=== PATIENT | female | born 2000 | race Caucasian/White ===

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

== ENCOUNTER 2018-02-10 08:00 | Emergency (ER) | payer MEDICAID ==
[2018-02-10 08:09] VITALS: BP 134/93
--- NOTE | 2018-02-10 08:45 | ER Document Report ---
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 Patient states that on occasion she will get some tingling in her fingers. Patient does work as a take out waiter/waitress and uses her arms constantly, but does not recall a specific injury that precipitated her pain. She denies any drug allergies. Denies any trauma. Denies any IV drug use or smoking. No other concerns or complaints. Denies any headache, fever, head injury, neck pain/stiffness, URI, sore throat, chest pain, palpitations, syncope, cough, shortness of breath, wheeze, dyspnea, abdominal pain, nausea/vomiting/diarrhea, urinary retention, dysuria, hematuria , loss of control of bowel or bladder, muscle paralysis/weakness, or rash. - ROS Systems Reviewed and Negative: Yes All other systems reviewed and negative - EENT EENT: DENIES: Sore Throat - CARDIOVASCULAR Cardiovascular: DENIES: Chest pain - REPRODUCTIVE Reproductive: DENIES: : - MUSCULOSKELETAL Musculoskeletal: REPORTS: Extremity pain - right shoulder Past Medical History - Social History Smoking Status: Never Smoker Chew tobacco use (# tins/day): No Frequency of alcohol use: None Drug Abuse: None Family History: Reviewed & Not Pertinent Patient has suicidal ideation: No Patient has homicidal ideation: No Endocrine Medical History: Reports: Hx Hypothyroidism Renal/ Medical History: Denies: Hx Peritoneal Dialysis Psychiatric Medical History: Reports: Hx Anxiety, Hx Depression, Hx Post Traumatic Stress Disorder - Mother states: "daddy issues". Past Surgical History: Reports: Hx Orthopedic Surgery - left wrist - Immunizations Immunizations up to date: Yes Vertical Provider Document - CONSTITUTIONAL Agree With Documented VS: Yes Notes: PHYSICAL EXAMINATION: GENERAL: Well-appearing, well-nourished and in no acute distress. NECK: Normal range of motion, supple without lymphadenopathy. Non-tender. Spurling negative. No rigidity/meningismus. LUNGS: Breath sounds clear to auscultation bilaterally and equal. No wheezes rales or rhonchi. HEART: Regular rate and rhythm without murmurs, rubs, gallops. Musculoskeletal: Rt shoulder: FROM to passive. LROM to active due to pain. Strength 4+/5 due to pain. mild + impingement test. Neg speed test. No crepitus. No erythema or warmth. No deformity or ecchymosis. RC intact 4+/5 strength to lateral rotation and empty can test. Extremities: No cyanosis, clubbing, or edema b/l. Peripheral pulses 2+. Capillary refill less than 3 seconds. NEUROLOGICAL: Normal speech, normal gait. Normal sensory, motor exams PSYCH: Normal mood, normal affect. SKIN: Warm, Dry, normal turgor, no rashes or lesions noted. - INFECTION CONTROL TRAVEL OUTSIDE OF THE [place] IN LAST 30 DAYS: No Course - Re-evaluation Re-evalutation: 02/10/18 08:43 Patient is an afebrile, well-hydrated, 18-year-old female who presents to the ED with Rt shoulder pain which I suspect to be inflammatory at this time. Vitals are acceptable without any significant tachycardia, tachypnea, or hypoxia. PE is otherwise unremarkable for any neurovascular compromise, obvious tendon/ligament rupture, obvious fracture/dislocation, septic joint. Patient is nontoxic-appearing. No labs or imaging warranted at this time based on H&P. Rx for voltaren gel. Conservative measures otherwise for symptoms. Recheck with your PCM in 3-5 days. Schedule an appt with ortho. Return to the ED with any worsening/concerning symptoms otherwise as reviewed in discharge. Patient is in agreement. - Vital Signs Vital signs: Temp Pulse Resp BP Pulse Ox 98.3 F 70 18 134/93 H 99 02/10/18 08:03 02/10/18 08:03 02/10/18 08:03 02/10/18 08:03 02/10/18 08:03 Discharge - Discharge Clinical Impression: Right shoulder pain Qualifiers: Chronicity: acute Qualified Code(s): M25.511 - Pain in right shoulder Condition: Stable Disposition: HOME, SELF-CARE Additional Instructions: Rest, Ice, Compression Tylenol/ibuprofen as needed Light stretches daily Strength exercises as able Moist heat and massage may help F/u with your PCP in 3-5 days for a recheck Schedule an appointment with orthopedics for further evaluation and management Return to the ED with any worsening symptoms and/or development of fever, headache, chest pain, palpitations, syncope, shortness of breath, trouble breathing, abdominal pain, n/v/d, muscle weakness/paralysis, numbness/tingling, swelling, redness, or other worsening symptoms that are concerning to you. Prescriptions: Diclofenac Sodium [Voltaren] 4 gm TP QID PRN #100 gel..gm. PRN Reason: Forms: Elevated Blood Pressure Referrals: DELPHINE WORTHINGTON MD [Primary Care Provider] - Follow up as needed [facility] [Provider Group] - Follow up in 3-5 days
== END 2018-02-10 08:49 | disposition home or self-care (01) ==
LOC: ER 08:00
DX: M25.511 Pain in right shoulder (principal); E03.9 Hypothyroidism, unspecified
CPT/HCPCS: 99283

== ENCOUNTER 2018-08-04 14:44 | Emergency (ER) | payer SELFPAY ==
--- NOTE | 2018-08-04 15:51 | ER Document Report ---
ED Medical Screen (RME) - General Chief Complaint: Abdominal Pain Stated Complaint: ABDOMINAL PAIN Time Seen by Provider: 08/04/18 15:43 Primary Care Provider: DELPHINE WORTHINGTON MD [Primary Care Provider] - Follow up as needed Mode of Arrival: Ambulatory Information source: Patient Notes: 18-year-old female presents to ED for complaint of pain to the right abdomen upp er and lower and pelvic area. She states she is also had nausea but no vomiting for about 3 days. She denies any fevers. She states she has had vaginal discharge of a brownish foul-smelling. She states she had a menstrual period about 3 weeks ago she is on the Nexplanon and and not had a period before that for about a year. Patient is alert oriented respirations regular and unlabored bowel sounds are present and active. Orders were started for blood work urine patient did self swab for GC chlamydia and wet mount. And a transvaginal ultrasound has been ordered. I have greeted and performed a rapid initial assessment of this patient. A comprehensive ED assessment and evaluation of the patient, analysis of test results and completion of medical decision making process will be conducted by an additional ED providers. TRAVEL OUTSIDE OF THE [place] IN LAST 30 DAYS: No - Related Data Allergies/Adverse Reactions: No Known Allergies Allergy (Verified 08/04/18 14:48) Past Medical History - Social History Chew tobacco use (# tins/day): No Frequency of alcohol use: None Drug Abuse: None Endocrine Medical History: Reports: Hx Hypothyroidism Renal/ Medical History: Denies: Hx Peritoneal Dialysis Psychiatric Medical History: Reports: Hx Anxiety, Hx Depression, Hx Post Traumatic Stress Disorder - Mother states: "daddy issues". Past Surgical History: Reports: Hx Orthopedic Surgery - left wrist - Immunizations Immunizations up to date: Yes Physical Exam - Vital signs Vitals: Temp Pulse Resp BP Pulse Ox 98.1 F 56 L 16 142/81 H 97 08/04/18 14:50 08/04/18 14:50 08/04/18 14:50 08/04/18 14:50 08/04/18 14:50 Course - Vital Signs Vital signs: Temp Pulse Resp BP Pulse Ox 98.1 F 56 L 16 142/81 H 97 08/04/18 14:50 08/04/18 14:50 08/04/18 14:50 08/04/18 14:50 08/04/18 14:50 Doctor's Discharge - Discharge Referrals: DELPHINE WORTHINGTON MD [Primary Care Provider] - Follow up as needed
[2018-08-04 16:22] LABS: BACTERIA (WET MOUNT) 3+ BACTERIA SEEN; EPITHELIALS (WET MOUNT) 3+ EPITHELIALS SEEN; RBCS (WET MOUNT) FEW RBCS SEEN; T.VAGINALIS (WET MOUNT) NO TRICHOMONAS SEEN; WBCS (WET MOUNT) FEW WBCS SEEN; YEAST (WET MOUNT) NO YEAST SEEN
[2018-08-04 16:33] LABS: ALANINE AMINOTRANSFERASE 32 U/L (9-52); ALBUMIN 4.6 g/dL (3.5-5.0); ALKALINE PHOSPHATASE 81 U/L (38-126); ANION GAP 9 (5-19); ASPARTATE AMINO TRANSFERASE 21 U/L (14-36); BILIRUBIN,DIRECT 0.1 mg/dL (0.0-0.4); BILIRUBIN,TOTAL 0.7 mg/dL (0.2-1.3); BLOOD UREA NITROGEN 8 mg/dL (7-20); CALCIUM 9.5 mg/dL (8.4-10.2); CARBON DIOXIDE 26 mmol/L (22-30); CHLORIDE 109 mmol/L (98-107); GLUCOSE 89 mg/dL (75-110); POTASSIUM 4.1 mmol/L (3.6-5.0); SODIUM 143.5 mmol/L (137-145); TOTAL PROTEIN 7.5 g/dL (6.3-8.2)
--- NOTE | 2018-08-04 16:59 | ER Document Report ---
ED General - General Chief Complaint: Abdominal Pain Stated Complaint: ABDOMINAL PAIN Time Seen by Provider: 08/04/18 15:43 Primary Care Provider: [facility] [Provider Group] - Follow up as needed DELPHINE WORTHINGTON MD [NO LOCAL MD] - Follow up as needed Mode of Arrival: Ambulatory TRAVEL OUTSIDE OF THE [place] IN LAST 30 DAYS: No - HPI Notes: Patient is a 18-year-old female with no significant past medical history who presents to the emergency department complaining of right lower quadrant abdominal pain that began about 3-4 days ago. Patient states that the pain was initially somewhat intermittent, but has been relatively constant since then. Patient states that the pain is throbbing and sometimes sharp. Pain does not radiate. She is still able to eat and drink, but does have occasional nausea. She is urinating normally and having normal bowel movements. Patient has not had any vaginal bleeding or odor, states she has noticed a slight brownish discharge. She is currently on the Nexplanon and has been over the last 1.25 years. Denies drug allergies. No surgical history to her abdomen. Denies any headache, fever, neck pain, URI, sore throat, chest pain, palpitations, syncope, cough, shortness of breath, wheeze, dyspnea, vomiting/diarrhea, urinary retention, dysuria, hematuria, back pain, or rash. - Related Data Allergies/Adverse Reactions: No Known Allergies Allergy (Verified 08/04/18 14:48) Past Medical History - General Information source: Patient - Social History Smoking Status: Never Smoker Chew tobacco use (# tins/day): No Frequency of alcohol use: None Drug Abuse: None Family History: Reviewed & Not Pertinent Patient has suicidal ideation: No Patient has homicidal ideation: No Endocrine Medical History: Reports: Hx Hypothyroidism Renal/ Medical History: Denies: Hx Peritoneal Dialysis Psychiatric Medical History: Reports: Hx Anxiety, Hx Depression, Hx Post Traumatic Stress Disorder - Mother states: "daddy issues". Past Surgical History: Reports: Hx Orthopedic Surgery - left wrist - Immunizations Immunizations up to date: Yes Review of Systems - Review of Systems -: Yes All other systems reviewed and negative Physical Exam - Vital signs Vitals: Temp Pulse Resp BP Pulse Ox 98.1 F 56 L 16 142/81 H 97 08/04/18 14:50 08/04/18 14:50 08/04/18 14:50 08/04/18 14:50 08/04/18 14:50 - Notes Notes: PHYSICAL EXAMINATION: accompanied by female rn, gabrielle GENERAL: Well-appearing, well-nourished and in no acute distress. A&Ox4. Answers questions appropriately. LUNGS: Breath sounds clear to auscultation bilaterally and equal. No wheezes rales or rhonchi. HEART: Regular rate and rhythm without murmurs, rubs, gallops. ABDOMEN: Soft, nondistended abdomen. No guarding, no rebound. Normal bowel sounds present. No CVA tenderness bilaterally. + tenderness at McBurney point. No lower pelvic tenderness. Female : No inguinal adenopathy. External genitalia without erythema, lesions, or masses. Vaginal mucosa pink with scant white discharge. Cervix parous, pink, and without discharge. Uterus is smooth. No adnexal tenderness. No significant CMT. Musculoskeletal: FROM to passive/active. Strength 5+/5. Extremities: No cyanosis, clubbing, or edema b/l. Peripheral pulses 2+. Capillary refill less than 3 seconds. NEUROLOGICAL: Normal speech, normal gait. PSYCH: Normal mood, normal affect. SKIN: Warm, Dry, normal turgor, no rashes or lesions noted. Course - Re-evaluation Re-evalutation: Patient is an afebrile, well-hydrated, 18-year-old female who presents to the ED with RLQ pain, probable rt PID. Vitals are acceptable without any significant tachycardia, tachypnea, or hypoxia. PE is otherwise unremarkable. CBC, CMP, Urinalysis and hCG are unremarkable for any acute pathology. See wet mount results. Chlam/gonorrhea tests are negative. Patient is nontoxic-appearing is tolerating p.o. without any difficulties. See TVUS and CT abd/pelv. No other labs or imaging warranted at this time based on H&P. Low suspicion/risk for acute appendicitis, bowel obstruction, acute cholecystitis, acute cholangitis, perforated diverticulitis, incarcerated hernia, pancreatitis, perforated ulcer, peritonitis, sepsis, ectopic , tubo-ovarian abscess, ovarian torsion, or other systemic emergent condition at this time. Patient is aware that her condition can change from initial presentation and she needs to monitor symptoms closely and seek medical attention if any acute changes. I will send her home with prescription for Flagyl and Doxy. Conservative measures otherwise for symptoms. Recheck with your PCM/OBGYN in 3-5 days. Return to the ED with any worsening/concerning symptoms otherwise as reviewed in discharge. Patient is in agreement. Reviewed with Dr. Kilgore who is in agreement with dispo/plan. - Vital Signs Vital signs: Temp Pulse Resp BP Pulse Ox 98.1 F 56 L 16 142/81 H 97 08/04/18 14:50 08/04/18 14:50 08/04/18 14:50 08/04/18 14:50 08/04/18 14:50 - Laboratory Result Diagrams: 08/04/18 16:54 08/04/18 15:55 Laboratory results interpreted by me: 08/04/18 08/04/18 15:55 16:54 Lymphocytes % 45.1 H Chloride 109 H Procedures - Pelvic Exam Pelvic exam Time completed: 18:30 Bimanual exam performed: Yes - negative Witnessed by: ELENA Parrishtruck unloader - Discharge Clinical Impression: PID (acute pelvic inflammatory disease), BV (bacterial vaginosis) Condition: Stable Disposition: HOME, SELF-CARE Instructions: Doxycycline ([facility]), Metronidazole ([facility]), Pelvic Inflammatory Disease ([facility]), Vaginosis, Bacterial ([facility]) Additional Instructions: Maintain fluid intake Proper hygienic technique Keep the skin clean Safe sexual practices with condoms everytime Tylenol/ibuprofen as needed F/u with your PCM/OBGYN in 3-5 days for a recheck Return to the ED with any development of ABDUL/fever, trouble with vision, eye redness, worsening pain, urethral discharge, urinary retention, blood in the urine, flank pain, abdominal pain, n/v, Chest Pain, shortness of breath, joint pains, trouble breathing, or any other worsening/concerning symptoms as needed otherwise. Prescriptions: Doxycycline Hyclate 100 mg PO BID #28 capsule Metronidazole [Flagyl] 500 mg PO BID #14 tablet Forms: Elevated Blood Pressure Referrals: DELPHINE WORTHINGTON MD [NO LOCAL MD] - Follow up as needed [facility] [Provider Group] - Follow up as needed
[2018-08-04 17:29] LABS: ABSOLUTE LYMPHOCYTES (AUTO) 2.1 10^3/uL (0.5-4.7); ABSOLUTE MONOCYTES (AUTO) 0.4 10^3/uL (0.1-1.4); ABSOLUTE NEUT (AUTO) 2.2 10^3/uL (1.7-8.2); BASOPHILS % (AUTO) 0.3 % (0-2); EOSINOPHILS % (AUTO) 0.8 % (0-6); HEMATOCRIT 38.7 % (36.0-47.0); HEMOGLOBIN 13.1 g/dL (12.0-15.5); LYMPHOCYTES % (AUTO) 45.1 % (13-45); MEAN CORPUSCULAR HEMOGLOBIN 31.6 pg (27.0-33.4); MEAN CORPUSCULAR HGB CONC 33.8 g/dL (32.0-36.0); MEAN CORPUSCULAR VOLUME 94 fl (80-97); MONOCYTES % (AUTO) 7.9 % (3-13); PLATELET COUNT 262 10^3/uL (150-450); RED BLOOD COUNT 4.14 10^6/uL (3.72-5.28); RED CELL DISTRIBUTION WIDTH 13.3 % (11.5-14.0); SEGMENTED NEUTROPHILS % (AUTO) 45.9 % (42-78); TOTAL CELLS COUNTED % (AUTO) 100 %; WHITE BLOOD COUNT 4.8 10^3/uL (4.0-10.5)
[2018-08-04 17:46] LABS: CHLAM PCR NOT DETECTED (NOT DETECT); GON PCR NOT DETECTED (NOT DETECT)
--- NOTE | 2018-08-04 17:59 | RADIOLOGY REPORT (SQ) ---
EXAM DESCRIPTION: CT ABD/PELVIS WITH IV ONLY COMPLETED DATE/TIME: 08/04/2018 5:31 pm REASON FOR STUDY: RLQ pain COMPARISON: None. TECHNIQUE: CT scan of the abdomen and pelvis performed using helical scanning technique with dynamic intravenous contrast injection. No oral contrast. Images reviewed with lung, soft tissue, and bone windows. Reconstructed coronal and sagittal MPR images reviewed. Delayed images for evaluation of the urinary system also acquired. All images stored on PACS. All CT scanners at this facility use dose modulation, iterative reconstruction, and/or weight based d osing when appropriate to reduce radiation dose to as low as reasonably achievable (ALARA). [facility]: Dose Right [facility]: CareDose [facility]: Dose Right [facility]: Teradose 4D [facility]: [place] CONTRAST TYPE AND DOSE: contrast/concentration: Isovue 350.00 mg/ml; Total Contrast Delivered: 93.0 ml; Total Saline Delivered: 71.0 ml RENAL FUNCTION: BUN 8 creatinine 0.67 RADIATION DOSE: CT Rad equipment meets quality standard of care and radiation dose reduction techniq ues were employed. CTDIvol: 7.3 - 10.2 mGy. DLP: 904 mGy-cm.. LIMITATIONS: None. FINDINGS: LOWER CHEST: No significant findings. No nodules or infiltrates. LIVER: Normal size. No masses. No dilated ducts. SPLEEN: Normal size. No focal lesions. PANCREAS: No masses. No significant calcifications. No adjacent inflammation or peripancreatic fluid collections. Pancreatic duct not dilated. GALLBLADDER: No identified stones by CT criteria. No inflammatory changes to suggest cholecystitis. ADRENAL GLANDS: No significant masses or asymmetry. RIGHT KIDNEY AND URETER: No solid masses. No significant calcifications. No hydronephrosis or hyd roureter. LEFT KIDNEY AND URETER: No solid masses. No significant calcifications. No hydronephrosis or hydr oureter. AORTA AND VESSELS: No aneurysm. No dissection. Renal arteries, SMA, celiac without stenosis. RETROPERITONEUM: No retroperitoneal adenopathy, hemorrhage or masses. BOWEL AND PERITONEAL CAVITY: No masses or inflammatory changes. No free fluid or peritoneal masses. APPENDIX: Normal. PELVIS: Cannot exclude dilated fluid-filled fallopian tube on the right. ABDOMINAL WALL: No masses. No hernias. BONES: No significant or acute findings. OTHER: No other significant finding. IMPRESSION: Possible pelvic inflammatory disease on the right. Consider ultrasound further evaluati on. TECHNICAL DOCUMENTATION: JOB ID: [id number] Quality ID # [id number]: Final reports with documentation of one or more dose reduction techniques (e.g., Au tomated exposure control, adjustment of the mA and/or kV according to patient size, use of iterative reconstruction technique) 2010 [employer]- All Rights Reserved Reading location - IP/workstation name: [email or web address]
--- NOTE | 2018-08-04 19:15 | RADIOLOGY REPORT (SQ) ---
EXAM DESCRIPTION: U/S NON OB PEL TV W/DOPPLER COMPLETED DATE/TIME: 08/04/2018 6:54 pm REASON FOR STUDY: poss PID on rt per CT scan irregular menses. COMPARISON: None. TECHNIQUE: Dynamic and static grayscale images acquired of the pelvis via transvaginal approach and recorded on PACS. Additional selected color Doppler and spectral images recorded. LIMITATIONS: None. FINDINGS: UTERUS: Contour normal. No mass. ENDOMETRIAL STRIPE: No focal or generalized thickening. No masses. CERVIX: 2.6 cm. No nabothian cysts. RIGHT OVARY AND DOPPLER: Normal size. No worrisome masses. Normal arterial vascular flow without evid ence for torsion. There is no evidence of dilated fallopian tube. LEFT OVARY AND DOPPLER: Normal size. No worrisome masses. Normal arterial vascular flow without evide nce for torsion. FREE FLUID: None noted. OTHER: No other significant finding. MEASUREMENTS: UTERUS: 6.8 x 2.8 x 3.9 cm. ENDOMETRIAL STRIPE: 2.4 mm. RIGHT OVARY: 2.7 x 1.7 x 2.7 cm. LEFT OVARY: 2.6 x 1.8 x 1.8 cm. IMPRESSION: NORMAL TRANSVAGINAL PELVIC ULTRASOUND. TECHNICAL DOCUMENTATION: JOB ID: [id number] [employer]- All Rights Reserved Rev-11/06 Reading location - IP/workstation name: [email or web address]
[2018-08-04 19:58] LABS: APPEARANCE,URINE CLEAR; BILIRUBIN,URINE NEGATIVE (NEGATIVE); COLOR,URINE STRAW; GLUCOSE, URINE NEGATIVE (NEGATIVE); KETONES,URINE 20 mg/dL (NEGATIVE); LEUKOCYTE ESTERASE,URINE NEGATIVE (NEGATIVE); NITRITE,URINE NEGATIVE (NEGATIVE); PROTEIN,URINE NEGATIVE (NEGATIVE); UROBILINOGEN,URINE NEGATIVE mg/dL (<2.0)
[2018-08-04 20:04] LABS: URINE SPECIFIC GRAVITY > 1.060
[2018-08-04] MEDS ORDERED: METRONIDAZOLE 500 MG TABLET PO ONE (20:09)
[2018-08-04] MEDS ORDERED: DOXYCYCLINE HYCLATE 100 MG TABLET PO ONE (20:09)
[2018-08-04] MEDS ORDERED: PROMETHAZINE HCL 25 MG TABLET PO ONE (20:09)
[2018-08-04 20:30] VITALS: BP 136/86
== END 2018-08-04 20:30 | disposition home or self-care (01) ==
LOC: ER 14:44
DX: N73.9 Female pelvic inflammatory disease, unspecified (principal); N76.0 Acute vaginitis; B96.89 Other specified bacterial agents as the cause of diseases classified elsewhere; R10.9 Unspecified abdominal pain; R10.31 Right lower quadrant pain
CPT/HCPCS: 36415; 74177; 76830; 80053; 81001; 84702; 85025; 87210; 87491; 87591; 93976; 99284

== ENCOUNTER 2019-04-01 23:06 | Emergency (ER) | payer OTHER ==
--- NOTE | 2019-04-02 01:28 | ER Document Report ---
ED Medical Screen (RME) - General Chief Complaint: Shoulder Pain Stated Complaint: RIGHT SHOULDER PAIN Time Seen by Provider: 04/02/19 01:26 Primary Care Provider: MAXIME RIVERA PA-C [Primary Care Provider] - Follow up as needed Mode of Arrival: Ambulatory Information source: Patient Notes: 19-year-old female presents with complaints of right shoulder pain for little over a month. Denies trauma. Reports she is double-jointed. Reports she is right-hand dominant. 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 Reports she has pain moving her shoulder. I have greeted and performed a rapid initial assessment of this patient. A comprehensive ED assessment and evaluation of the patient, analysis of test results and completion of the medical decision making process will be conducted by additional ED providers. Dictation of this chart was performed using voice recognition software; therefore, there may be some unintended grammatical errors. TRAVEL OUTSIDE OF THE [place] IN LAST 30 DAYS: No - Related Data Allergies/Adverse Reactions: No Known Allergies Allergy (Verified 08/04/18 14:48) Past Medical History - Social History Frequency of alcohol use: Occasional Drug Abuse: None Neurological Medical History: Reports: Hx Migraine Endocrine Medical History: Reports: Hx Hypothyroidism Renal/ Medical History: Denies: Hx Peritoneal Dialysis Psychiatric Medical History: Reports: Hx Anxiety, Hx Depression, Hx Post Traumatic Stress Disorder - Mother states: "daddy issues". Past Surgical History: Reports: Hx Orthopedic Surgery - left wrist - Immunizations Immunizations up to date: Yes Physical Exam - Vital signs Vitals: Temp Pulse Resp BP Pulse Ox 98.1 F 73 14 138/85 H 100 04/01/19 23:10 04/01/19 23:10 04/01/19 23:10 04/01/19 23:10 04/01/19 23:10 Course - Vital Signs Vital signs: Temp Pulse Resp BP Pulse Ox 98.1 F 73 14 138/85 H 100 04/01/19 23:10 04/01/19 23:10 04/01/19 23:10 04/01/19 23:10 04/01/19 23:10 Doctor's Discharge - Discharge Referrals: MAXIME RIVERA PA-C [Primary Care Provider] - Follow up as needed
--- NOTE | 2019-04-02 02:23 | RADIOLOGY REPORT (SQ) ---
EXAM DESCRIPTION: XR right SHOULDER 2 OR MORE VIEWS COMPLETED DATE/TME: 04/02/2019 01:26 CLINICAL HISTORY: 19 years, Female, pain COMPARISON: None. NUMBER OF VIEWS: TECHNIQUE: LIMITATIONS: None. FINDINGS: No fracture or dislocation. The acromioclavicular joint appears intact. Mineralization of bone appears normal. There are no soft tissue calcifications. IMPRESSION: No radiographic abnormality. copyright 2010 [employer]- All Rights Reserved
[2019-04-02] MEDS ORDERED: DIAZEPAM INJ 10 MG/2 ML DISP.SYRIN IM ONE (03:17)
--- NOTE | 2019-04-02 03:17 | ER Document Report ---
HPI - HPI Time Seen by Provider: 04/02/19 01:26 Pain Level: 3 Context: Patient is a 19-year-old female that comes emergency department for chief complaint of intermittent right shoulder pain. This is been going on intermittently for over a month. 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 She states that it hurts to put her hand behind her back and sometimes it feels very tight. She states sometimes it feels like it releases and she has no pain but it keeps tightening back up. She denies trauma, fever/chills, weakness, numbness, shortness of breath, headache. Past medical history of anxiety/depression, treated. She denies . - CONSTITUTIONAL Constitutional: DENIES: Fever, Chills - CARDIOVASCULAR Cardiovascular: DENIES: Chest pain - RESPIRATORY Respiratory: DENIES: Trouble Breathing, Coughing - REPRODUCTIVE LMP: impl[place] Reproductive: DENIES: : - MUSCULOSKELETAL Musculoskeletal: REPORTS: Extremity pain - right shoulder Past Medical History - General Information source: Patient - Social History Smoking Status: Never Smoker Frequency of alcohol use: Occasional Drug Abuse: None Lives with: Family Family History: Reviewed & Not Pertinent Patient has suicidal ideation: No Patient has homicidal ideation: No Neurological Medical History: Reports: Hx Migraine Endocrine Medical History: Reports: Hx Hypothyroidism Renal/ Medical History: Denies: Hx Peritoneal Dialysis Psychiatric Medical History: Reports: Hx Anxiety, Hx Depression, Hx Post Traumatic Stress Disorder - Mother states: "daddy issues". Past Surgical History: Reports: Hx Orthopedic Surgery - left wrist - Immunizations Immunizations up to date: Yes Vertical Provider Document - CONSTITUTIONAL General Appearance: WD/WN, No Apparent Distress - INFECTION CONTROL TRAVEL OUTSIDE OF THE [place] IN LAST 30 DAYS: No - HEENT HEENT: Atraumatic, Normal ENT Exam, Normocephalic - NECK Neck: Normal Inspection - RESPIRATORY Respiratory: Breath Sounds Normal, No Respiratory Distress - CARDIOVASCULAR Cardiovascular: Regular Rate, Regular Rhythm - GI/ABDOMEN Gastrointestinal: Abdomen Soft, Abdomen Non-Tender - BACK Back: negative: Normal Inspection - Patient with tight muscle fibers with point tenderness in the right upper back just above the scapula, pain in the same place with range of motion placing arm behind the back and lifting the shoulder. No abnormal erythema, no severe tenderness, no fluctuance or induration. Palpation over the shoulder, arm, hand is normal, normal strength, normal range of motion of the arm, normal distal neurovascular exam. Normal neck exam. - MUSCULOSKELETAL/EXTREMETIES Musculoskeletal/Extremeties: MABAKARI, FROM, Non-Tender - NEURO Level of Consciousness: Awake, Alert, Appropriate Motor/Sensory: No Motor Deficit, No Sensory Deficit - DERM Integumentary: Warm, Dry, No Rash Course - Re-evaluation Re-evalutation: X-ray reviewed and unremarkable. Patient with what appears to be isolated muscle spasm in the right upper back/trapezius muscle. Slightly extends to the rotator cuff. Very low suspicion of septic joint with normal range of motion, no neurovascular deficits, well-appearing patient. Appears to be somewhat related to posture and bra as well, this was discussed. Discussed expectations, treatments, imaging, follow-up, return precautions. Patient states appreciation and agreement. - Vital Signs Vital signs: Temp Pulse Resp BP Pulse Ox 98.1 F 73 14 138/85 H 100 04/01/19 23:10 04/01/19 23:10 04/01/19 23:10 04/01/19 23:10 04/01/19 23:10 Discharge - Discharge Clinical Impression: Right shoulder pain Qualifiers: Chronicity: acute Qualified Code(s): M25.511 - Pain in right shoulder Condition: Stable Disposition: HOME, SELF-CARE Additional Instructions: Your evaluation is most consistent with a muscle spasm. The x-ray is normal. Apply heat, do gentle stretches, massage the area, take the prescribed anti- inflammatory muscle relaxer. Sometimes posture change can make a big difference. Follow-up with primary care. Return if you worsen including developing swelling/redness, fever, severe worsening pain, difficulty breathing, severe headache, or any other concerning symptoms. Prescriptions: Naproxen 500 mg PO BID PRN #20 tablet PRN Reason: Methocarbamol [Robaxin-750] 750 mg PO QID PRN #20 tablet PRN Reason: Forms: Return to Work, Treatment of Relative/Child Referrals: MAXIME RIVERA PA-C [Primary Care Provider] - Follow up as needed
[2019-04-02 03:46] VITALS: BP 121/80
== END 2019-04-02 03:46 | disposition home or self-care (01) ==
LOC: ER 23:06
DX: M25.511 Pain in right shoulder (principal)
CPT/HCPCS: 99283; 96374; 73030; J3360

== ENCOUNTER 2019-09-17 12:12 | Emergency (ER) | payer OTHER ==
[2019-09-17 13:17] LABS: APPEARANCE,URINE CLEAR; BILIRUBIN,URINE NEGATIVE (NEGATIVE); COLOR,URINE STRAW; GLUCOSE, URINE NEGATIVE (NEGATIVE); KETONES,URINE NEGATIVE (NEGATIVE); LEUKOCYTE ESTERASE,URINE NEGATIVE (NEGATIVE); NITRITE,URINE NEGATIVE (NEGATIVE); PROTEIN,URINE NEGATIVE (NEGATIVE); URINE SPECIFIC GRAVITY 1.013; UROBILINOGEN,URINE NEGATIVE mg/dL (<2.0)
--- NOTE | 2019-09-17 13:17 | ER Document Report ---
ED General - General Chief Complaint: Dizziness Stated Complaint: GENERAL WEAKNESS,NAUSEA Time Seen by Provider: 09/17/19 12:27 Primary Care Provider: MAXIME RIVERA PA-C [Primary Care Provider] - Follow up as needed Notes: CHIEF COMPLAINT: Multiple complaints HPI: 19-year-old female presenting to the emergency department with multiple complaints. Patient states that over the last 5 days she has had intermittent e pisodes of lightheadedness. She has had a slight dry cough with occasional shortness of breath. No wheezing no fever. No recent travel. Patient also reports some suprapubic discomfort, denies dysuria. Denies nausea vomiting but has had 1-2 episodes of loose bowels. Patient denies possibility of ROS: See HPI - all other systems were reviewed and are otherwise negative Constitutional: no fever Eyes: no drainage, no blurred vision ENT: no runny nose, no sore throat Cardiovascular: no chest pain Resp: + SOB, + cough GI: no vomiting, no diarrhea, + abdominal pain : no dysuria Integumentary: no rash Allergy: no hives Musculoskeletal: no extremity pain or swelling Neurological: no numbness/tingling, no weakness, intermittent lightheadedness MEDICATIONS: I agree with the patient medications as charted by the RN. ALLERGIES: I agree with the allergies as charted by the RN. PAST MEDICAL HISTORY/PAST SURGICAL HISTORY: Reviewed and agree as charted by RN. SOCIAL HISTORY: Reviewed and agree as charted by RN. FAMILY HISTORY: No significant familial comorbid conditions directly related to patient complaint EXAM: Reviewed vital signs as charted by RN. CONSTITUTIONAL: Alert and oriented and responds appropriately to questions. Well-appearing; well-nourished HEAD: Normocephalic; atraumatic EYES: PERRL; Conjunctivae clear, sclerae non-icteric. No nystagmus ENT: normal nose; no rhinorrhea; moist mucous membranes; pharynx without lesions noted, no uvula edema or deviation, no tonsillar hypertrophy, phonation normal NECK: Supple without meningismus; non-tender; no cervical lymphadenopathy, no masses CARD: RRR; no murmurs, no clicks, no rubs, no gallops; symmetric distal pulses RESP: Normal chest excursion without splinting or tachypnea; breath sounds clear and equal bilaterally; no wheezes, no rhonchi, no rales, pulse oximetry ABD/GI: Normal bowel sounds; non-distended; soft, mild tenderness over the suprapubic region on palpation, no rebound, no guarding; no palpable organomegaly or masses. BACK: The back appears normal and is non-tender to palpation, there is no CVA tenderness EXT: Normal ROM in all joints; non-tender to palpation; no cyanosis, no e ffusions, no edema SKIN: Normal color for age and race; warm; dry; good turgor; no acute lesions noted NEURO: Moves all extremities equally; Motor and sensory function intact. Face symmetric. Tongue protrudes midline. Extraocular motions intact. Pupils are 2 mm and equally reactive. Normal speech, normal gait. 5 out of 5 strength in both the distal and proximal upper and lower extremities bilaterally. Sensation is grossly intact throughout. Finger to nose testing normal. Pronator drift normal. PSYCH: The patient's mood and manner are appropriate. Grooming and personal hygiene are appropriate. MDM: 19-year-old female with multiple complaints. Intermittent lightheadedness she is not having any dizziness or lightheadedness currently. Slight dry cough with occasional shortness of breath, is not dyspneic with speaking here is not hypoxic. Will obtain chest x-ray. Mild suprapubic tenderness will obtain urinalysis urine . Will obtain basic screening labs to evaluate for anemia or electrolyte abnormality. I suspect this is likely a viral etiology TRAVEL OUTSIDE OF THE [place] IN LAST 30 DAYS: No - Related Data Allergies/Adverse Reactions: No Known Allergies Allergy (Verified 08/04/18 14:48) Past Medical History - Social History Smoking Status: Unknown if Ever Smoked Family History: Reviewed & Not Pertinent Patient has suicidal ideation: No Patient has homicidal ideation: No Neurological Medical History: Reports: Hx Migraine Endocrine Medical History: Reports: Hx Hypothyroidism Renal/ Medical History: Denies: Hx Peritoneal Dialysis Psychiatric Medical History: Reports: Hx Anxiety, Hx Depression, Hx Post Traumatic Stress Disorder - Mother states: "daddy issues". Past Surgical History: Reports: Hx Orthopedic Surgery - left wrist - Immunizations Immunizations up to date: Yes Physical Exam - Vital signs Vitals: Temp Pulse Resp BP Pulse Ox 98.7 F 92 18 113/67 98 09/17/19 12:34 09/17/19 12:34 09/17/19 12:34 09/17/19 12:34 09/17/19 12:34 Course - Re-evaluation Re-evalutation: 09/17/19 13:53 Patient's lab work is negative for acute findings her chest is hernandez is negative for acute findings. This is likely a viral etiology. She is afebrile and has not had recent travel that would suggest a Covid infection. Will discharge home with symptomatic treatment follow-up PCP. - Vital Signs Vital signs: Temp Pulse Resp BP Pulse Ox 98.7 F 92 18 113/67 98 09/17/19 12:34 09/17/19 12:34 09/17/19 12:34 09/17/19 12:34 09/17/19 12:34 - Laboratory Result Diagrams: 09/17/19 12:55 09/17/19 12:55 Laboratory results interpreted by me: 09/17/19 12:55 AST 49 H ALT 40 H Discharge - Discharge Clinical Impression: Viral upper respiratory illness Condition: Stable Disposition: HOME, SELF-CARE Additional Instructions: Your lab work including your flu test, urinalysis, test, blood counts and chemistries did not show any acute abnormalities. Your chest x-ray was negative for pneumonia. This is likely a viral etiology, make sure that you go home and hydrate well. Motrin or Tylenol for fever or body ache. Follow-up with your primary care provider for reevaluation of symptoms call for appointment. If you have worsening or focal abdominal pain, worsening cough or shortness of breath or onset of high fever return for reevaluation Referrals: MAXIME RIVERA PA-C [Primary Care Provider] - Follow up as needed
[2019-09-17 13:23] LABS: ABSOLUTE EOSINOPHILS # (AUTO) 0.1 10^3/uL (0.0-0.6); ABSOLUTE LYMPHOCYTES (AUTO) 2.1 10^3/uL (0.5-4.7); ABSOLUTE MONOCYTES (AUTO) 0.4 10^3/uL (0.1-1.4); ABSOLUTE NEUT (AUTO) 3.2 10^3/uL (1.7-8.2); BASOPHILS % (AUTO) 0.2 % (0-2); EOSINOPHILS % (AUTO) 0.9 % (0-6); HEMOGLOBIN 13.7 g/dL (12.0-15.5); MEAN CORPUSCULAR HEMOGLOBIN 32.4 pg (27.0-33.4); MEAN CORPUSCULAR HGB CONC 34.3 g/dL (32.0-36.0); MEAN CORPUSCULAR VOLUME 95 fl (80-97); MONOCYTES % (AUTO) 6.3 % (3-13); PLATELET COUNT 284 10^3/uL (150-450); RED BLOOD COUNT 4.23 10^6/uL (3.72-5.28); RED CELL DISTRIBUTION WIDTH 13.4 % (11.5-14.0); SEGMENTED NEUTROPHILS % (AUTO) 55.6 % (42-78); TOTAL CELLS COUNTED % (AUTO) 100 %; WHITE BLOOD COUNT 5.8 10^3/uL (4.0-10.5)
[2019-09-17 13:30] LABS: ALBUMIN 4.3 g/dL (3.5-5.0); ALKALINE PHOSPHATASE 76 U/L (38-126); ANION GAP 10 (5-19); ASPARTATE AMINO TRANSFERASE 49 U/L (14-36); BILIRUBIN,DIRECT 0.2 mg/dL (0.0-0.4); BILIRUBIN,TOTAL 0.4 mg/dL (0.2-1.3); BLOOD UREA NITROGEN 14 mg/dL (7-20); CALCIUM 9.2 mg/dL (8.4-10.2); CARBON DIOXIDE 22 mmol/L (22-30); CHLORIDE 106 mmol/L (98-107); GLUCOSE 88 mg/dL (75-110); POTASSIUM 4.1 mmol/L (3.6-5.0); TOTAL PROTEIN 7.9 g/dL (6.3-8.2)
[2019-09-17 13:30] LABS: A TYPE INFLUENZA AG NEGATIVE (NEGATIVE); B INFLUENZA AG NEGATIVE (NEGATIVE)
--- NOTE | 2019-09-17 13:35 | RADIOLOGY REPORT (SQ) ---
EXAM DESCRIPTION: CHEST SINGLE VIEW IMAGES COMPLETED DATE/TIME: 09/17/2019 1:18 pm REASON FOR STUDY: cough COMPARISON: None. EXAM PARAMETERS: NUMBER OF VIEWS: One view. TECHNIQUE: Single frontal radiographic view of the chest acquired. RADIATION DOSE: NA LIMITATIONS: None. FINDINGS: LUNGS AND PLEURA: No opacities, masses or pneumothorax. No pleural effusion. MEDIASTINUM AND HILAR STRUCTURES: No masses. Contour normal. HEART AND VASCULAR STRUCTURES: Heart normal in size. Normal vasculature. BONES: No acute findings. HARDWARE: None in the chest. OTHER: No other significant finding. IMPRESSION: NO ACUTE RADIOGRAPHIC FINDING IN THE CHEST. TECHNICAL DOCUMENTATION: JOB ID: [id number] 2010 [employer]- All Rights Reserved Reading location - IP/workstation name: [id number]
[2019-09-17 14:15] VITALS: BP 124/75
== END 2019-09-17 14:14 | disposition home or self-care (01) ==
LOC: ER 12:12
DX: B34.9 Viral infection, unspecified (principal); R42 Dizziness and giddiness; R53.1 Weakness; R11.0 Nausea; R05 Cough; R06.02 Shortness of breath
CPT/HCPCS: 36415; 71045; 80053; 81001; 81025; 85025; 87804; 99284

== ENCOUNTER 2019-09-19 18:18 | Emergency (ER) | payer OTHER ==
[2019-09-19] MEDS ORDERED: NORMAL SALINE 1000 ML 1,000 ML IV ONE (18:28)
--- NOTE | 2019-09-19 18:30 | ER Document Report ---
ED Medical Screen (RME) - General Chief Complaint: Dizziness Stated Complaint: DIZZINESS,BODY ACHES Time Seen by Provider: 09/19/19 18:24 Primary Care Provider: MAXIME RIVERA PA-C [Primary Care Provider] - Follow up as needed Information source: Patient Notes: Patient presents complaining of weakness, dizziness and generalized body aches. Patient also complains of nausea. Patient with uncontrolled sporadic jerking that started since her arrival here in the department. Patient is able to talk during these jerking episodes. Patient denies any recent medication changes. Patient does report increased stress due to the current pandemic as well as a recent in her family. Patient states that she is also had increased stress because she is had to work as she is an essential staff member. I have greeted and performed a rapid initial assessment of this patient. A comprehensive ED assessment and evaluation of the patient, analysis of test results and completion of the medical decision making process will be conducted by additional ED providers. TRAVEL OUTSIDE OF THE [place] IN LAST 30 DAYS: No - Related Data Allergies/Adverse Reactions: No Known Allergies Allergy (Verified 08/04/18 14:48) Past Medical History Neurological Medical History: Reports: Hx Migraine Endocrine Medical History: Reports: Hx Hypothyroidism Renal/ Medical History: Denies: Hx Peritoneal Dialysis Psychiatric Medical History: Reports: Hx Anxiety, Hx Depression, Hx Post Traumatic Stress Disorder - Mother states: "daddy issues". Past Surgical History: Reports: Hx Orthopedic Surgery - left wrist - Immunizations Immunizations up to date: Yes Physical Exam - General General appearance: Alert - Neurological Dean Coma Scale Eye Opening: Spontaneous Dean Coma Scale Verbal: Oriented [place] Coma Scale Motor: Obeys Commands Dean Coma Scale Total: 15 - Psychological Associated symptoms: Flat affect Doctor's Discharge - Discharge Referrals: MAXIME RIVERA PA-C [Primary Care Provider] - Follow up as needed
--- NOTE | 2019-09-19 19:09 | ER Document Report ---
ED Dizziness/Weakness - General Chief Complaint: Dizziness Stated Complaint: DIZZINESS,BODY ACHES Time Seen by Provider: 09/19/19 18:24 Primary Care Provider: MAXIME RIVERA PA-C [Primary Care Provider] - Follow up as needed Mode of Arrival: Ambulatory Information source: Patient TRAVEL OUTSIDE OF THE [place] IN LAST 30 DAYS: No - HPI Notes: Patient presents complaint of dizziness and weakness. She states this is been going on for proxy 1 week. He is also had some intermittent abdominal pain. This pain is been crampy. Nothing makes it better or worse. Radiates throughout her abdomen. No vaginal discharge or bleeding. No problems with urination. She has had some near syncope but has not passed out. No previous history of similar events. No recent fevers cough cold congestion. She states this been going on for approximate 1 week but got worse today so she came for evaluation. She states she has been under a lot of stress lately. - Related Data Allergies/Adverse Reactions: No Known Allergies Allergy (Verified 08/04/18 14:48) Home Medications: nexplanon, valyclovir, synthroid, topamax, alexopram Past Medical History - General Information source: Patient - Social History Smoking Status: Never Smoker Chew tobacco use (# tins/day): No Frequency of alcohol use: Rare Drug Abuse: None Family History: Reviewed & Not Pertinent Patient has suicidal ideation: No Patient has homicidal ideation: No Neurological Medical History: Reports: Hx Migraine Endocrine Medical History: Reports: Hx Hypothyroidism Renal/ Medical History: Denies: Hx Peritoneal Dialysis Psychiatric Medical History: Reports: Hx Anxiety, Hx Depression, Hx Post Traumatic Stress Disorder - Mother states: "daddy issues". Past Surgical History: Reports: Hx Orthopedic Surgery - left wrist - Immunizations Immunizations up to date: Yes Review of Systems - Review of Systems Constitutional: Malaise, Weakness. denies: Chills, Fever Cardiovascular: denies: Chest pain, Dyspnea Respiratory: denies: Cough, Short of breath -: Yes All other systems reviewed and negative Physical Exam - Vital signs Vitals: Temp Pulse Resp BP Pulse Ox 98.4 F 80 16 129/66 H 98 09/19/19 19:00 09/19/19 19:00 09/19/19 19:00 09/19/19 19:00 09/19/19 19:00 Interpretation: Normal - General General appearance: Appears well, Alert - HEENT Head: Normocephalic, Atraumatic Eyes: Normal Pupils: PERRL - Respiratory Respiratory status: No respiratory distress Chest status: Nontender Breath sounds: Normal Chest palpation: Normal - Cardiovascular Rhythm: Regular Heart sounds: Normal auscultation Murmur: No - Abdominal Inspection: Normal Distension: No distension Bowel sounds: Normal Tenderness: Nontender Organomegaly: No organomegaly - Back Back: Normal, Nontender - Extremities General upper extremity: Normal inspection, Nontender, Normal color, Normal ROM, Normal temperature General lower extremity: Normal inspection, Nontender, Normal color, Normal ROM, Normal temperature, Normal weight bearing. No: Camilo's sign - Neurological Neuro grossly intact: Yes Cognition: Normal Orientation: AAOx4 [place] Coma Scale Eye Opening: Spontaneous Dean Coma Scale Verbal: Oriented [place] Coma Scale Motor: Obeys Commands Dean Coma Scale Total: 15 Speech: Normal Motor strength normal: LUE, RUE, LLE, RLE Sensory: Normal - Psychological Associated symptoms: Normal affect, Normal mood - Skin Skin Temperature: Warm Skin Moisture: Dry Skin Color: Normal Course - Re-evaluation Re-evalutation: 09/19/19 19:54 Patient presents with dizziness. Laboratory evaluation is unremarkable. Eliseo t is not . EKG is also unremarkable and without abnormality. Vital signs are stable. Exam is also unremarkable. I believe this is most likely due to anxiety. Patient is been educated about this and can follow-up as an outpatient. - Vital Signs Vital signs: Temp Pulse Resp BP Pulse Ox 98.4 F 80 16 129/66 H 98 09/19/19 19:00 09/19/19 19:00 09/19/19 19:00 09/19/19 19:00 09/19/19 19:00 - Laboratory Result Diagrams: 09/19/19 19:10 09/19/19 19:10 Laboratory results interpreted by me: 09/19/19 19:10 Chloride 108 H Total Bilirubin 0.1 L AST 41 H ALT 40 H - EKG Interpretation by Hi EKG shows normal: Sinus rhythm Rate: Normal - 68 Rhythm: NSR Irvona/QRS: No: Right axis deviation, Left axis deviation Discharge - Discharge Clinical Impression: Anxiety Condition: Stable Disposition: HOME, SELF-CARE Instructions: Anxiety ([facility]) Forms: Return to Work Referrals: MAXIME RIVERA PA-C [Primary Care Provider] - Follow up in 1 week
[2019-09-19 19:17] LABS: URINE AMPHETAMINES SCREEN NEGATIVE; URINE BARBITURATES SCREEN NEGATIVE; URINE BENZODIAZEPINES SCREEN NEGATIVE; URINE METHADONE SCREEN NEGATIVE; URINE PHENCYCLIDINE SCREEN NEGATIVE
[2019-09-19 19:19] LABS: URINE COCAINE SCREEN NEGATIVE; URINE MARIJUANA (THC) SCREEN NEGATIVE
[2019-09-19 19:20] VITALS: BP 129/66
[2019-09-19 19:26] LABS: APPEARANCE,URINE SLIGHTLY-CLOUDY; BILIRUBIN,URINE NEGATIVE (NEGATIVE); COLOR,URINE YELLOW; GLUCOSE, URINE NEGATIVE (NEGATIVE); KETONES,URINE NEGATIVE (NEGATIVE); LEUKOCYTE ESTERASE,URINE NEGATIVE (NEGATIVE); NITRITE,URINE NEGATIVE (NEGATIVE); PROTEIN,URINE NEGATIVE (NEGATIVE); URINE SPECIFIC GRAVITY 1.024; UROBILINOGEN,URINE NEGATIVE mg/dL (<2.0)
[2019-09-19 19:27] LABS: ABSOLUTE EOSINOPHILS # (AUTO) 0.1 10^3/uL (0.0-0.6); BASOPHILS % (AUTO) 0.3 % (0-2); TOTAL CELLS COUNTED % (AUTO) 100 %
[2019-09-19 19:38] LABS: ABSOLUTE LYMPHOCYTES (AUTO) 2.3 10^3/uL (0.5-4.7); ABSOLUTE MONOCYTES (AUTO) 0.6 10^3/uL (0.1-1.4); EOSINOPHILS % (AUTO) 1.2 % (0-6); HEMATOCRIT 36.8 % (36.0-47.0); HEMOGLOBIN 12.8 g/dL (12.0-15.5); MEAN CORPUSCULAR HEMOGLOBIN 33.2 pg (27.0-33.4); MEAN CORPUSCULAR HGB CONC 34.9 g/dL (32.0-36.0); MEAN CORPUSCULAR VOLUME 95 fl (80-97); MONOCYTES % (AUTO) 8.1 % (3-13); PLATELET COUNT 294 10^3/uL (150-450); RED BLOOD COUNT 3.86 10^6/uL (3.72-5.28); SEGMENTED NEUTROPHILS % (AUTO) 57.4 % (42-78); WHITE BLOOD COUNT 6.9 10^3/uL (4.0-10.5)
[2019-09-19 19:45] LABS: ALBUMIN 3.9 g/dL (3.5-5.0); ALKALINE PHOSPHATASE 69 U/L (38-126); ANION GAP 8 (5-19); ASPARTATE AMINO TRANSFERASE 41 U/L (14-36); BILIRUBIN,TOTAL 0.1 mg/dL (0.2-1.3); BLOOD UREA NITROGEN 13 mg/dL (7-20); CALCIUM 8.9 mg/dL (8.4-10.2); CARBON DIOXIDE 22 mmol/L (22-30); CHLORIDE 108 mmol/L (98-107); GLUCOSE 99 mg/dL (75-110); POTASSIUM 3.8 mmol/L (3.6-5.0); TOTAL PROTEIN 7.1 g/dL (6.3-8.2)
--- NOTE | 2019-09-20 09:26 | EKG REPORT ---
SEVERITY:- NORMAL ECG - SINUS RHYTHM : Confirmed by: Amanda Hutchison 20-Sep-2019 09:25:32
== END 2019-09-19 20:03 | disposition home or self-care (01) ==
LOC: ER 18:18
DX: F41.9 Anxiety disorder, unspecified (principal); R42 Dizziness and giddiness; M79.10 Myalgia, unspecified site
CPT/HCPCS: 93005; 99284; 96360; 36415; 84703; 85025; 80053; 81001; 80307; 93010; J7030

== ENCOUNTER 2019-09-23 19:05 | Emergency (ER) | payer OTHER ==
--- NOTE | 2019-09-23 19:21 | ER Document Report ---
ED Medical Screen (RME) - General Chief Complaint: Rectal Bleeding Stated Complaint: RECTAL BLEEDING Time Seen by Provider: 09/23/19 19:12 Primary Care Provider: MAXIME RIVERA PA-C [Primary Care Provider] - Follow up as needed Mode of Arrival: Ambulatory Information source: Patient Notes: 19-year-old female presents emergency department with rectal bleeding started today. Reports she has had rectal bleeding on and off for the past year. She reports usually it will clot off and stop bleeding. She has been evaluated by her primary care provider. She reports she had a bowel movement today and has had bleeding since that time on toilet paper. She denies using rectal toys and rectal sex. Denies other symptoms such as fever vomiting diarrhea. I have greeted and performed a rapid initial assessment of this patient. A comprehensive ED assessment and evaluation of the patient, analysis of test results and completion of the medical decision making process will be conducted by additional ED providers. TRAVEL OUTSIDE OF THE [place] IN LAST 30 DAYS: No - Related Data Allergies/Adverse Reactions: No Known Allergies Allergy (Verified 09/23/19 19:12) Past Medical History - Social History Chew tobacco use (# tins/day): No Frequency of alcohol use: Occasional Drug Abuse: None Neurological Medical History: Reports: Hx Migraine Endocrine Medical History: Reports: Hx Hypothyroidism Renal/ Medical History: Denies: Hx Peritoneal Dialysis Psychiatric Medical History: Reports: Hx Anxiety, Hx Depression, Hx Post Traumatic Stress Disorder - Mother states: "daddy issues". Past Surgical History: Reports: Hx Orthopedic Surgery - left wrist - Immunizations Immunizations up to date: Yes Physical Exam - Vital signs Vitals: Temp Pulse Resp BP Pulse Ox 98.1 F 76 16 137/78 H 100 09/23/19 19:10 09/23/19 19:10 09/23/19 19:10 09/23/19 19:10 09/23/19 19:10 Course - Vital Signs Vital signs: Temp Pulse Resp BP Pulse Ox 98.1 F 76 16 137/78 H 100 09/23/19 19:10 09/23/19 19:10 09/23/19 19:10 09/23/19 19:10 09/23/19 19:10 Doctor's Discharge - Discharge Referrals: MAXIME RIVERA PA-C [Primary Care Provider] - Follow up as needed
[2019-09-23 20:26] LABS: ABSOLUTE EOSINOPHILS # (AUTO) 0.1 10^3/uL (0.0-0.6); ABSOLUTE LYMPHOCYTES (AUTO) 2.3 10^3/uL (0.5-4.7); ABSOLUTE MONOCYTES (AUTO) 0.5 10^3/uL (0.1-1.4); ABSOLUTE NEUT (AUTO) 6.7 10^3/uL (1.7-8.2); BASOPHILS % (AUTO) 0.3 % (0-2); EOSINOPHILS % (AUTO) 0.6 % (0-6); HEMATOCRIT 39.1 % (36.0-47.0); HEMOGLOBIN 13.4 g/dL (12.0-15.5); LYMPHOCYTES % (AUTO) 23.8 % (13-45); MEAN CORPUSCULAR HEMOGLOBIN 32.8 pg (27.0-33.4); MEAN CORPUSCULAR HGB CONC 34.4 g/dL (32.0-36.0); MEAN CORPUSCULAR VOLUME 96 fl (80-97); MONOCYTES % (AUTO) 5.6 % (3-13); PLATELET COUNT 291 10^3/uL (150-450); RED BLOOD COUNT 4.09 10^6/uL (3.72-5.28); RED CELL DISTRIBUTION WIDTH 13.5 % (11.5-14.0); SEGMENTED NEUTROPHILS % (AUTO) 69.7 % (42-78); TOTAL CELLS COUNTED % (AUTO) 100 %; WHITE BLOOD COUNT 9.6 10^3/uL (4.0-10.5)
[2019-09-23 20:44] LABS: ALBUMIN 4.8 g/dL (3.5-5.0); ALKALINE PHOSPHATASE 82 U/L (38-126); ANION GAP 9 (5-19); ASPARTATE AMINO TRANSFERASE 31 U/L (14-36); BILIRUBIN,TOTAL 0.4 mg/dL (0.2-1.3); BLOOD UREA NITROGEN 19 mg/dL (7-20); CALCIUM 9.4 mg/dL (8.4-10.2); CARBON DIOXIDE 25 mmol/L (22-30); CHLORIDE 107 mmol/L (98-107); GLUCOSE 94 mg/dL (75-110); TOTAL PROTEIN 8.4 g/dL (6.3-8.2)
[2019-09-23 22:12] VITALS: BP 141/67
--- NOTE | 2019-09-24 05:26 | ER Document Report ---
Entered by AJ MARTINO SCRIBE [id number] Acting as scribe for:PAUL ESCOBAR IV, MD ED GI Bleed / Rectal Pain - General Chief Complaint: Rectal Bleeding Stated Complaint: RECTAL BLEEDING Time Seen by Provider: 09/23/19 19:12 Primary Care Provider: MAXIME RIVERA PA-C [Primary Care Provider] - Follow up as needed Mode of Arrival: Ambulatory Information source: Patient Notes: This 19 year old female patient presents to the ED today with complaints of rectal bleeding that started today. Patient states that she has had rectal bleeding on and off for the past year, but it hasn't been concerning to her or her PCP. Patient reports that she noticed bright red blood on the toilet paper after she had a bowel movement earlier today. Patient states that the blood usually resolves on its own after she places a tissue tissue there, but reports that an hour after her BM today, there was still blood. Patient notes that she does occasionally have hard stools, but denies any rectal pain. Patient denies history of hemophilia or any other blood disorder. Patient reports that she does use Ibuprofen prn, but denies using ASA. Patient also denies fever, vomiting, or diarrhea. TRAVEL OUTSIDE OF THE [place] IN LAST 30 DAYS: No - Related Data Allergies/Adverse Reactions: No Known Allergies Allergy (Verified 09/23/19 19:12) Past Medical History - General Information source: Patient - Social History Smoking Status: Never Smoker Cigarette use (# per day): No Chew tobacco use (# tins/day): No Smoking Education Provided: No Frequency of alcohol use: Occasional Drug Abuse: None Family History: Reviewed & Not Pertinent Patient has suicidal ideation: No Patient has homicidal ideation: No Neurological Medical History: Reports: Hx Migraine Endocrine Medical History: Reports: Hx Hypothyroidism GI Medical History: Reports: Hx Gastroesophageal Reflux Disease Psychiatric Medical History: Reports: Hx Anxiety, Hx Depression, Hx Post Traumatic Stress Disorder - Mother states: "daddy issues". Past Surgical History: Reports: Hx Orthopedic Surgery - left wrist - Immunizations Immunizations up to date: Yes Review of Systems - Review of Systems Constitutional: See HPI. denies: Fever EENT: No symptoms reported Cardiovascular: No symptoms reported Respiratory: No symptoms reported Gastrointestinal: See HPI, Rectal bleeding. denies: Diarrhea, Vomiting, Other - Rectal pain Genitourinary: No symptoms reported Female Genitourinary: No symptoms reported Musculoskeletal: No symptoms reported Skin: No symptoms reported Hematologic/Lymphatic: No symptoms reported Neurological/Psychological: No symptoms reported -: Yes All other systems reviewed and negative Physical Exam - Vital signs Vitals: Temp Pulse Resp BP Pulse Ox 98.1 F 76 16 137/78 H 100 09/23/19 19:10 09/23/19 19:10 09/23/19 19:10 09/23/19 19:10 09/23/19 19:10 - General General appearance: Alert In distress: None - HEENT Head: Normocephalic, Atraumatic Eyes: Normal Pupils: PERRL - Respiratory Respiratory status: No respiratory distress Chest status: Nontender Breath sounds: Normal Chest palpation: Normal - Cardiovascular Rhythm: Regular Heart sounds: Normal auscultation Murmur: No Friction rub: No Gallop: None auscultated - Abdominal Inspection: Normal Distension: No distension Bowel sounds: Normal Tenderness: Nontender - Abdomen soft Organomegaly: No organomegaly - Rectal Stool: Heme positive Hemorrhoids: None, Anal fissure - 4 o'clock position - Back Back: Normal, Nontender - Extremities General upper extremity: Normal inspection General lower extremity: Normal inspection - Neurological Neuro grossly intact: Yes - Psychological Associated symptoms: Normal affect, Normal mood - Skin Skin Temperature: Warm Skin Moisture: Dry Skin Color: Normal Course - Re-evaluation Re-evalutation: 09/23/19 21:28 Results of ED MSE discussed with patient. Diagnosis and plan of treatment also discussed with patient. All questions were answered. Emergency signs and symptoms, reasons to return to the emergency department discussed with patient. - Vital Signs Vital signs: Temp Pulse Resp BP Pulse Ox 98.4 F 72 18 141/67 H 99 09/23/19 21:58 09/23/19 21:58 09/23/19 21:58 09/23/19 21:58 09/23/19 21:58 - Laboratory Result Diagrams: 09/23/19 20:05 09/23/19 20:05 Laboratory results interpreted by me: 09/23/19 20:05 ALT 37 H Total Protein 8.4 H Discharge - Discharge Clinical Impression: Anal fissure Condition: Good Disposition: HOME, SELF-CARE Additional Instructions: Return to the Emergency Department without delay if any worse. HOME CARE INSTRUCTIONS & INFORMATION: Thank you for choosing us for your medical needs. We hope you're satisfied with the care you received. After you leave, you must properly care for your problem and, at the same time, observe its progress. Any condition can change. Some illnesses can change rapidly over hours or days. If your condition worsens, return to the Emergency Department or see your physician promptly. ABOUT YOUR X-RAYS AND EKG'S: If you had an EKG or X-rays taken, they have been read by the Emergency Physician. The X-rays and EKG's will also be read by a Radiologist or Transit Planner within 24 hours. If discrepancies are noted, you will be notified by telephone. Please be certain the ED has a correct telephone number & address where you can be reached. Also, realize that some fractures or abnormalities do not show up on initial X-rays. If your symptoms continue, see your physician. ABOUT YOUR LABORATORY TEST: If you had laboratory tests, the results have been reviewed by the Emergency Physician. Some test results (for example cultures) may not be available for several days. You will be contacted if any test result shows you need additional treatment. Please be certain the ED has a correct telephone number and address where you can be reached. ABOUT YOUR MEDICATIONS: You will receive instructions on how to take your medicine on the prescription label you receive. Additional information may be provided by the Pharmacy. If you have questions afterwards, call the ED for clarification or further instructions. Some prescribed medications may cause drowsiness. Do not perform tasks such as driving a car or operating machinery without consulting your Pharmacist. If you feel you need a refill of pain medication, your condition will need re-evaluation. Please do not call for a refill of any medication. ABOUT YOUR SIGNATURE: Signature of this document acknowledges to followin. Understanding that you received emergency treatment and that you may be released before al medical problems are known or treated. Please be certain the ED has a correct phone number & address where you can be reached. 2. Acknowledgement that you will arrange for follow-up care as recommended. 3. Authorization for the Emergency Physician to provide information to your follow-up Physician in order to maximize your care. AT ANY TIME, IF YOUR SYMPTOMS CHANGE SIGNIFICANTLY OR WORSEN OR YOU DEVELOP NEW SYMPTOMS, RETURN TO THE EMERGENCY DEPARTMENT IMMEDIATELY FOR RE-EVALUATION. OUR GOAL IS TO PROVIDE EXCELLENT MEDICAL CARE! WE HOPE THAT WE HAVE MET YOUR EXPECTATIONS DURING YOUR EMERGENCY DEPARTMENT VISIT AND THAT YOU FEEL YOU HAVE RECEIVED EXCELLENT CARE! Anal Fissure You have a split in the tissues of the anus, called an anal fissure. This may be due to constipation, or chronic anal irritation. The fissure causes pain during bowel movements. It may bleed when you pass stool. Treat the fissure with warm sitz baths three or four times a day. Clean the anal area carefully -- special cleansing pads (Tucks) may be helpful. Sometimes prescription suppositories are helpful in reducing pain and inflammation. A stool softener (such as Metamucil) will make bowel movements less traumatic. Eat a diet high in fiber (fruits, whole grains), and drink plenty of water. See your doctor if there is profuse bleeding, increasing pain, an enlarging mass, or fever -- or if the symptoms do not resolve after treatment. Prescriptions: Docusate Sodium [Colace 100 mg Capsule] 100 mg PO BID #30 capsule Glycerin 1 each VA TID #30 supp.rect Referrals: MAXIME RIVERA PA-C [Primary Care Provider] - Follow up as needed I personally performed the services described in the documentation, reviewed and edited the documentation which was dictated to the scribe in my presence, and it accurately records my words and actions.
== END 2019-09-23 21:58 | disposition home or self-care (01) ==
LOC: ER 19:05
DX: K60.2 Anal fissure, unspecified (principal); K62.5 Hemorrhage of anus and rectum
CPT/HCPCS: 36415; 80053; 84703; 85025; 99283

== ENCOUNTER 2020-03-27 17:15 | Emergency (ER) | payer SELFPAY ==
[2020-03-27 17:27] VITALS: BP 132/65
[2020-03-27] MEDS ORDERED: ONDANSETRON 4 MG TAB.RAPDIS PO ONE (18:21)
[2020-03-27] MEDS ORDERED: ACETAMINOPHEN 325 MG TABLET PO ONE (18:21)
--- NOTE | 2020-03-27 18:25 | ER Document Report ---
ED Medical Screen (RME) - General Chief Complaint: Headache Stated Complaint: HEADACHE,NAUSEA Time Seen by Provider: 03/27/20 18:14 Primary Care Provider: MAXIME RIVERA PA-C [Primary Care Provider] - Follow up as needed Mode of Arrival: Ambulatory Information source: Patient Notes: 20-year-old female presented to ED for complaint of a very bad headache for 24 hours. She states she is felt weak lightheaded nausea vomiting since yesterday. She states she is feeling very weak and fatigued. She states she has had ibuprofen with no relief. She does have a history of migraines hypothyroid and genital herpes. She does not smoke she does socially drink but no drugs. She states she did take ibuprofen around 12 or 1:00. I have ordered blood urine and Tylenol and Zofran. She is alert oriented respirations regular nonlabored speaking in full sentences. I have greeted and performed a rapid initial assessment of this patient. A comprehensive ED assessment and evaluation of the patient, analysis of test results and completion of medical decision making process will be conducted by an additional ED providers. TRAVEL OUTSIDE OF THE [place] IN LAST 30 DAYS: No - Related Data Allergies/Adverse Reactions: No Known Allergies Allergy (Verified 09/23/19 19:12) Past Medical History Neurological Medical History: Reports: Hx Migraine Endocrine Medical History: Reports: Hx Hypothyroidism Renal/ Medical History: Denies: Hx Peritoneal Dialysis GI Medical History: Reports: Hx Gastroesophageal Reflux Disease Psychiatric Medical History: Reports: Hx Anxiety, Hx Depression, Hx Post Traumatic Stress Disorder - Mother states: "daddy issues". Past Surgical History: Reports: Hx Orthopedic Surgery - left wrist - Immunizations Immunizations up to date: Yes Physical Exam - Vital signs Vitals: Temp Pulse Resp BP Pulse Ox 98.1 F 72 16 132/65 H 100 03/27/20 17:26 03/27/20 17:26 03/27/20 17:26 03/27/20 17:26 03/27/20 17:26 Course - Vital Signs Vital signs: Temp Pulse Resp BP Pulse Ox 98.1 F 72 16 132/65 H 100 03/27/20 17:26 03/27/20 17:26 03/27/20 17:26 03/27/20 17:26 03/27/20 17:26 Doctor's Discharge - Discharge Referrals: MAXIME RIVERA PA-C [Primary Care Provider] - Follow up as needed
== END 2020-03-27 23:55 | disposition left against medical advice (07) ==
LOC: ER 17:15
DX: R51.9 Headache, unspecified (principal); R42 Dizziness and giddiness; R11.2 Nausea with vomiting, unspecified
CPT/HCPCS: 99281

== ENCOUNTER → 2020-06-19 | Outpatient (CLI) | payer SELFPAY ==
--- NOTE | 2020-06-19 13:17 | ER RDC ASSESSMENT REPORT ---
Intake - In the Last 14 days Have you traveled outside [place]?: Yes --City/State: [place] Have you been in close contact with someone CONFIRMED: No Worked in Healthcare?: No - Symptoms Subjective Fever([place] feverish): No Chills: Yes Muscule Aches: Yes Runny Nose: Yes Sore Throat: No Cough (New or worsening chronic cough): Yes Shortness of breath: Yes Nausea or Vomiting: Yes Headache: Yes Abdominal Pain: No Diarrhea(3 or more loose stools in last 24 hours): No - Do you have any of the following Chronic lung disease: Asthma or emphysema or COPD: No Cystic Fibrosis: No Diabetes: No High Blood Pressure: No Cardiovascular Disease: No Chronic Kidney Disease: No Chronic Liver Disease: No Chronic blood disorder like Sickle Cell Disease: No Weak immune system due to disease or medication: No Neurologic condition that limits movement: No Developmental delay - Moderate to Severe: No Recent (within past 2 weeks) or current : No Morbid Obesity (>100 pounds over ideal weight): No - Objective Temperature: 98.6 F Pulse Rate: 98 Respiratory Rate: 17 Blood Pressure: 138/86 O2 Sat by Pulse Oximetry: 99 Objective: Given above, testing performed: flu, covid Disposition: Home; Selfcare General - General Stated Complaint: flu like symptoms Mode of Arrival: Ambulatory Information source: Patient - HPI Notes: 20-year-old female presents to [facility] clinic for COVID-19 testing. Patient reports no known exposure to Covid positive individual. However she did have recent travel to [place]. Onset of symptoms 06/16/2020. Patient is reporting chills, muscle aches, runny nose, cough, mild shortness of breath only with extended exertion, nausea, and headache. Denies any fever, sore throat, abdominal pain, or diarrhea. - Related Data Allergies/Adverse Reactions: No Known Allergies Allergy (Verified 09/23/19 19:12) Past Medical History - General Information source: Patient - Social History Smoking Status: Never Smoker Family History: Reviewed & Not Pertinent - Past Medical History Cardiac Medical History: Reports: None Pulmonary Medical History: Reports: None EENT Medical History: Reports: None Neurological Medical History: Reports: Hx Migraine Endocrine Medical History: Reports: Hx Hypothyroidism Renal/ Medical History: Reports: None. Denies: Hx Peritoneal Dialysis Malignancy Medical History: Reports: None GI Medical History: Reports: Hx Gastroesophageal Reflux Disease Musculoskeletal Medical History: Reports None Skin Medical History: Reports None Psychiatric Medical History: Reports: Hx Anxiety, Hx Depression, Hx Post Traumatic Stress Disorder - Mother states: "daddy issues". Traumatic Medical History: Reports: None Infectious Medical History: Reports: None Past Surgical History: Reports: Hx Orthopedic Surgery - left wrist Physical Exam - General General appearance: Appears well, Alert In distress: None Notes: PHYSICAL EXAMINATION: GENERAL: Well-appearing and in no acute distress. HEAD: Atraumatic, normocephalic. EYES: sclera anicteric, conjunctiva are normal. ENT: nares patent. Moist mucous membranes. NECK: Normal range of motion, supple without lymphadenopathy. LUNGS: No increased work of breathing. Lung sounds CTAB and equal. No wheezes rales or rhonchi. HEART: Regular rate and rhythm without murmurs. ABDOMEN: Soft, nontender, normal bowel sounds, no guarding. EXTREMITIES: Normal range of motion, no pitting edema. No cyanosis. NEUROLOGICAL: A&O x 3. Normal speech. PSYCH: Normal mood, normal affect. SKIN: Warm, Dry, normal turgor, no rashes or lesions noted Patient Education/Counseling Counseling/Education: Patient presents with symptoms associated with possible Covid 19 infection. Patient does not have emergency worrying symptoms such as difficulty breathing, shortness of breath, chest pain, pressure, confusion or cyanosis. Patient appears suitable for discharge as vital signs are stable and patient is nontoxic in appearance. Good return precautions have been discussed with patient, patient verbalized understanding and is agreeable with discharge plan of care at this time. Guidance for worsening S/SX: As a person under investigation for Covid 19, the [place] department of Health and Human Services, division of public health advises you to adhere to the following guidance until your test results are reported to you. If your test result is positive, you will receive additional information from your provider and your local health department at that time. Remain at home until you are cleared by the health provider or public health authorities. Keep a log of visitors to your home, notify any visitors to your home of your isolation status. If you plan to move to a new address or leave the county, notify the local health department in your County. Call your doctor or seek care if you have an urgent medical need. Before seeking medical care, call ahead to get instructions from the provider before arriving at the medical office clinic or hospital. Notify them that you are being tested for the virus that causes Covid 19 so that arrangements can be made, as necessary, to prevent transmission to others in the healthcare setting. Next, notify the local health department in your county. If a medical emergency arises and you need to call 911, inform the first responders that you are being tested for the virus that causes Covid 19. Next, notify the local health department in your county. RDC Discharge - Discharge Clinical Impression: Encounter for screening laboratory testing for COVID-19 virus Upper respiratory infection Qualifiers: URI type: unspecified URI Qualified Code(s): J06.9 - Acute upper respiratory infection, unspecified Condition: Good Disposition: Home; Selfcare
[2020-06-19 13:21] VITALS: BP 138/86
[2020-06-19 13:33] LABS: A TYPE INFLUENZA AG NEGATIVE (NEGATIVE); B INFLUENZA AG NEGATIVE (NEGATIVE)
== END ==
LOC: RDC 11:45
PROVIDERS: ATTEND Registered Nurse
DX: Z20.828 Contact with and (suspected) exposure to other viral communicable diseases (principal)
CPT/HCPCS: 87635; 87804; 99201; 99211; C9803